=== PATIENT | female | born 1955 ===

== ENCOUNTER → 2021-02-21 08:00 | Outpatient (CLI) | payer OTHER | END | disposition home or self-care (01) | LOC: LAB 08:00 → ADM 13:15 → EDSTATUS 13:15 → AMB-ENDOS 13:15 → ADM 02-22 13:00 | PROVIDERS: ATTEND Surgery | DX: D12.3 Benign neoplasm of transverse colon (principal); D12.4 Benign neoplasm of descending colon; R19.5 Other fecal abnormalities; I10 Essential (primary) hypertension; Z03.818 Encounter for observation for suspected exposure to other biological agents ruled out ==

== ENCOUNTER 2021-04-05 07:53 | Day surgery (SDC) | payer OTHER | END 2021-04-05 13:55 | disposition home or self-care (01) | LOC: AMB-ENDOS 07:53 | PROVIDERS: ATTEND Surgery | DX: D12.3 Benign neoplasm of transverse colon (principal); D12.4 Benign neoplasm of descending colon; K64.8 Other hemorrhoids; Z20.822 Contact with and (suspected) exposure to COVID-19 ==